=== PATIENT | female | born 1965 | race Hispanic/Latino ===

== ENCOUNTER 2017-03-03 17:55 | Emergency (ER) | payer MEDICARE, OTHER ==
[2017-03-03 17:56] VITALS: BMI 37.1
--- NOTE | 2017-03-03 18:21 | ED PDOC ---
Arrival/HPI - General Historian: Patient - History of Present Illness Time/Duration: Prior to Arrival Symptom Onset: Sudden Symptom Course: Unchanged Quality: Aching Context: Walking, Home <Maximus Carroll - Last Filed: 03/03/17 19:24> <MelchorChad bueno - Last Filed: 03/26/17 18:48> - General Time Seen by Provider: 03/03/17 17:58 - History of Present Illness Narrative History of Present Illness (Text): 03/03/17 18:17 This is a 51 yo female with hx anemia, anxiety, chronic low back and neck pain, presenting S/P fall. Pt suffered mechanical fall at home roughly 1 hr before evaluation. Pt was walking up stairs of banister at home when it collapsed and pt fell down onto ground on her right side. Pt is complaining of head and neck pain, along with 2 chipped teeth. She also reports B/L hip and arm pain and knee pain. She has black and blue jones on her right and left arms. PMH: Anemia, anxiety, chronic neck and back pain PSH: gastric bypass, neck surgery Allergies: NKDA FH: non contributory Home meds: ambien, xanax, oxycodone, percocet Social hx: current smoker, 1 ppd. no drinking. no drugs. Born in [place]. Lives at home with . 03/03/17 19:24 (Maximus Carroll) Past Medical History - Provider Review Nursing Documentation Reviewed: Yes - Travel History Have you recently traveled outside [place] w/in the past 3 mons?: No - Infectious Disease Hx of Infectious Diseases: None - Tetanus Immunization Tetanus Immunization: Unknown - Cardiac Hx Cardiac Disorders: No - Pulmonary Hx Asthma: Yes - Neurological Hx Neurological Disorder: No - HEENT Hx HEENT Disorder: No - Renal Hx Renal Disorder: No - Endocrine/Metabolic Hx Diabetes Mellitus Type 2: Yes - Hematological/Oncological Hx Blood Disorders: No - Integumentary Hx Dermatological Disorder: No - Musculoskeletal/Rheumatological Other/Comment: Carpel Tunnel - Gastrointestinal Hx Gastrointestinal Disorders: No - Genitourinary/Gynecological Hx Genitourinary Disorders: No - Psychiatric Hx Psychophysiologic Disorder: Yes Hx Anxiety: Yes Hx Bipolar Disorder: Yes Hx Depression: Yes Hx Substance Use: No - Surgical History Hx Section: Yes (X2) Hx Cholecystectomy: Yes Other/Comment: neck sx, 2 tummy tucks, brast implants, right carpal tunnel. - Anesthesia Hx Anesthesia: No Hx Anesthesia Reactions: No Hx Malignant Hyperthermia: No <Maximus Carroll - Last Filed: 03/03/17 19:24> Family/Social History - Physician Review Nursing Documentation Reviewed: Yes Family/Social History: No Known Family HX Smoking Status: Current Some Days Smoker Hx Alcohol Use: No Hx Substance Use: No Hx Substance Use Treatment: No <Maximus Carroll - Last Filed: 03/03/17 19:24> Allergies/Home Meds <Maximus Carroll - Last Filed: 03/03/17 19:24> <Chad Murguia - Last Filed: 03/26/17 18:48> Allergies/Adverse Reactions: Allergies No Known Allergies Allergy (Verified 01/15/14 11:23) Home Medications: Home Meds Medication Instructions Recorded Confirmed oxyCODONE/Acetaminophen [Percocet 1 tab PO Q6 PRN 03/03/17 03/03/17 5/325 mg Tab] Review of Systems - Review of Systems Constitutional: absent: Fevers, Night Sweats Eyes: absent: Vision Changes, Photophobia ENT: absent: Hearing Changes, Tinnitus Respiratory: absent: SOB, Cough Cardiovascular: absent: Chest Pain, Palpitations Gastrointestinal: absent: Abdominal Pain, Stool Changes Genitourinary Female: absent: Dysuria, Frequency Musculoskeletal: Back Pain, Neck Pain, Myalgias. absent: Arthralgias Skin: absent: Rash, Pruritis Neurological: Headache, Dizziness Endocrine: absent: Diaphoresis, Polyuria Hemo/Lymphatic: absent: Adenopathy, Easy Bleeding Psychiatric: absent: Anxiety, Depression <Maximus Carroll - Last Filed: 03/03/17 19:24> Physical Exam Vital Signs Reviewed: Yes Appearance: Positive for: Well-Appearing Mental Status: Positive for: Alert and Oriented X 3 - Systems Exam Head: Present: Normocephalic, Other (chipped front tooth) Pupils: Present: PERRL Extroacular Muscles: Present: EOMI Mouth: Present: Moist Mucous Membranes Neck: Present: MIDLINE TENDERNESS. No: Meningeal Signs, JVD Respiratory/Chest: No: Respiratory Distress, Accessory Muscle Use Cardiovascular: Present: Normal S1, S2 Abdomen: No: Tenderness, Distention, Peritoneal Signs Back: Present: Paraspinal Tenderness, Other (b/l hip tenderness) Upper Extremity: Present: Other (black and blue b/l arms). No: Normal Inspection, Cyanosis, Edema Lower Extremity: Present: Other (b/l knee tendernesss). No: Normal ROM Neurological: Present: CN II-XII Intact, Speech Normal Skin: Present: Warm, Dry Psychiatric: Present: Alert, Oriented x 3, Normal Insight, Normal Concentration <Maximus Carroll - Last Filed: 03/03/17 19:24> Vital Signs Temp Pulse Resp BP Pulse Ox 03/03/17 22:00 77 17 132/95 H 100 03/03/17 18:46 98.4 F 03/03/17 18:37 98 F 101 H 19 120/92 H 99 Medical Decision Making <Maximus Carroll - Last Filed: 03/03/17 19:24> <Chad Murguia - Last Filed: 03/26/17 18:48> ED Course and Treatment: pt was counselled regarding findings of non-specific sceloritic lesion of the mandible, thyroid lesions, pulmonary nodule, ovarian cyst, groin lymphanenopathy and to fu pmd/specialist to ensure no complications/cancer development. (Chad Murguia) - RAD Interpretation Radiology Orders: 03/03/17 18:41 KNEES BILATERAL [RAD] Stat SHOULDER LEFT [RAD] Stat SHOULDER RIGHT [RAD] Stat 03/03/17 18:42 PELVIS W/O PO OR IV CONTRAST [CT] Stat RIBS BILATERAL W/PA CHEST [RAD] Stat 03/03/17 18:43 CERVICAL SPINE W/O CONTRAST [CT] Stat HEAD W/O CONTRAST [CT] Stat MAXILLOFACIAL W/O CONTRAST [CT] Stat - Medication Orders Current Medication Orders: Discontinued Medications Ketorolac Tromethamine (Toradol) 30 mg IVP STAT STA Stop: 03/03/17 19:10 Last Admin: 03/03/17 19:35 Dose: 30 mg Comments: Administered via IM, left deltoid. Resident made aware and okayed. MAR Pain Assessment Document 03/03/17 19:35 RD (Rec: 03/03/17 20:13 RD [id number]) Pain Reassessment Is this a pain reassessment? No Sleep Is patient sleeping during reassessment? No Presence of Pain Presence of Pain Yes Description Pain Behavior Irritability IVP Administration Document 03/03/17 19:35 RD (Rec: 03/03/17 20:13 RD [id number]) Charges for Administration # of IVP Administrations 1 Disposition/Present on Arrival - Present on Arrival History of DVT/PE: No History of Uncontrolled Diabetes: No Urinary Catheter: No History Surgical Site Infection Following: None <Maximus Carroll - Last Filed: 03/03/17 19:24> - Present on Arrival Any Indicators Present on Arrival: No - Disposition Have Diagnosis and Disposition been Completed?: Yes Disposition Time: 22:30 <Chad Murguia - Last Filed: 03/26/17 18:48> - Disposition Diagnosis: Fall, Rib fracture Disposition: HOME/ ROUTINE Condition: STABLE Discharge Instructions (ExitCare): Ovarian Cyst (ED), Nasal Fracture (ED), Rib Fracture (ED), Lymphadenopathy (ED), Pulmonary Nodules (ED) Additional Instructions: Please return if condition worsens. Please follow up with PMD Please follow up with pain management for further pain control. Please use incentive spirometer Referrals: Pamela Le MD [Primary Care Provider] - Follow up with primary Forms: [employer] ([place])
[2017-03-03 18:49] VITALS: TEMP 98.4
--- NOTE | 2017-03-03 20:46 | CT ---
EXAM: CT Head Without Intravenous Contrast EXAM DATE/TIME: 03/03/2017 6:43 PM CLINICAL HISTORY: The patient age is 51 years old and is female; Injury or trauma; Fall; Initial encounter; Abrasion; Head, generalized Facility exam id and description: Ct heads head w/o contrast TECHNIQUE: Axial computed tomography images of the head/brain without intravenous contrast. All CT scans at this facility use one or more dose reduction techniques, viz.: automated exposure control; ma/kV adjustment per patient size (including targeted exams where dose is matched to indication; i.e. head); or iterative reconstruction technique. COMPARISON: No relevant prior studies available. FINDINGS: Brain: There is minimal to mild sulcal atrophy. The white-lei differentiation is preserved demonstrating no acute territorial type infarct. No acute intracranial hemorrhage is seen. Midline shift: There is no midline shift. Ventricles: No ventriculomegaly. Bones/joints: The calvarium demonstrates no evidence for a depressed fracture. Refer to the facial CT for description of findings involving the paranasal sinuses and facial bones. Soft tissues: No acute abnormality. Vasculature: There is mild atherosclerotic calcification of the cavernous internal carotid arteries. Sinuses: See above. Mastoid air cells: No mastoid effusion. IMPRESSION: 1. No acute intracranial abnormality. 2. There is minimal to mild sulcal atrophy.
--- NOTE | 2017-03-03 20:53 | CT ---
EXAM: CT Maxillofacial Without Intravenous Contrast EXAM DATE/TIME: 03/03/2017 6:43 PM CLINICAL HISTORY: The patient age is 51 years old and is female; Injury or trauma; Fall; Initial encounter; Abrasion; Forehead Facility exam id and description: Ct faces maxillofacial w/o contrast TECHNIQUE: Axial computed tomography images of the face without intravenous contrast. All CT scans at this facility use one or more dose reduction techniques, viz.: automated exposure control; ma/kV adjustment per patient size (including targeted exams where dose is matched to indication; i.e. head); or iterative reconstruction technique. Coronal and sagittal reformatted images were created and reviewed. COMPARISON: No relevant prior studies available. FINDINGS: Bones/joints: There is a fracture of the nasal bridge anteriorly, indeterminate in acuity. Nonspecific sclerotic changes identified involving the mandible anteriorly. The remaining facial bones are intact, without acute fracture. Refer to the cervical spine CT for discussion of findings involving the cervical spine. Soft tissues: No acute facial soft tissue swelling. Orbits: No acute abnormality. Sinuses: There is a small mucous retention cyst or polyp within the right maxillary sinus. Dental: There are areas of hypodensity surrounding the roots of multiple teeth, consistent with periodontal disease. Nasopharynx: There is a large defect within the nasal septum anteriorly, which is likely developmental, postoperative, or erosive. IMPRESSION: 1. There is a fracture of the nasal bridge anteriorly, indeterminate in acuity. Clinical correlation is recommended. 2. There is a large defect within the nasal septum anteriorly, which is likely developmental, postoperative, or erosive. 3. Nonspecific sclerotic changes identified involving the mandible anteriorly. 4. Additional CT findings described above.
--- NOTE | 2017-03-03 21:03 | CT ---
EXAM: CT Pelvis Without Intravenous Contrast EXAM DATE/TIME: 03/03/2017 6:42 PM CLINICAL HISTORY: The patient age is 51 years old and is female; Injury or trauma; Fall; Initial encounter; Abrasion; Bilateral; Pelvic region Facility exam id and description: Ct pelvs pelvis w/o po or iv contrast TECHNIQUE: Axial computed tomography images of the pelvis without intravenous contrast. All CT scans at this facility use one or more dose reduction techniques, viz.: automated exposure control; ma/kV adjustment per patient size (including targeted exams where dose is matched to indication; i.e. head); or iterative reconstruction technique. Coronal and sagittal reformatted images were created and reviewed. COMPARISON: CT - ABD PELVIS IV CONTRAST ONLY 2016-03-01 18:02 FINDINGS: Bones/joints: There is no acute fracture of the pelvis or hips. There is no dislocation of the hips. There is stable right L5 spondylolysis. Nonspecific sclerotic lesions are identified within the anterior inferior iliac spine. This is stable. There is stable abnormal morphology of the posterior elements at the L5 vertebral level. Soft tissues: There is minimal herniation of fat into the umbilicus. There stable stranding or postoperative changes involving the ventral abdominal subcutaneous tissues. Lymph nodes: There is an enlarged right inguinal lymph node measuring 2.2 cm in length, nonspecific as to etiology. This has increased in size. Stomach and bowel: Moderate fecal material is identified within the colon. No visualized obstruction. Bladder: No stones. Reproductive: There is a hypodense follicle or small cyst within the left ovary measures 1.5 x 1.2 cm. A small cystic collection of fluid is visualized within the right adnexa. IMPRESSION: 1. There is no acute fracture of the pelvis or hips. There is no dislocation of the hips. 2. There is stable right L5 spondylolysis. 3. Nonspecific sclerotic lesions are identified within the anterior inferior iliac spine. This is stable. 4. There is an enlarged right inguinal lymph node measuring 2.2 cm in length, nonspecific as to etiology. This has increased in size. 5. There is a hypodense follicle or small cyst within the left ovary measures 1.5 x 1.2 cm. A small cystic collection of fluid is visualized within the right adnexa. These findings can be further evaluated with ultrasound.
--- NOTE | 2017-03-03 21:12 | CT ---
EXAM: CT Cervical Spine Without Intravenous Contrast EXAM DATE/TIME: 03/03/2017 6:43 PM CLINICAL HISTORY: The patient age is 51 years old and is female; Injury or trauma; Fall; Initial encounter; Abrasion; Prior surgery; Surgery date: 6+ months Facility exam id and description: Ct csps cervical spine w/o contrast TECHNIQUE: Axial computed tomography images of the cervical spine without intravenous contrast. All CT scans at this facility use one or more dose reduction techniques, viz.: automated exposure control; ma/kV adjustment per patient size (including targeted exams where dose is matched to indication; i.e. head); or iterative reconstruction technique. Coronal and sagittal reformatted images were created and reviewed. COMPARISON: No relevant prior studies available. FINDINGS: Vertebrae: No acute cervical spine fracture or subluxation. There is postoperative fusion of the C4-C6 vertebral bodies. The cervical lordosis is preserved. The facet alignment is preserved bilaterally. The occipital condyles and C1-C2 articulations appear intact. Discs/spinal canal/neural foramina: Spondylosis is visualized at multiple cervical and upper thoracic levels. There is mild narrowing of the thecal sac at C3-4 with a central protrusion. Mild narrowing of the thecal sac is also identified at C6-7. Soft tissues: The prevertebral soft tissues appear within normal limits. Thyroid: There is asymmetric enlargement of the right thyroid lobe with nodules. The largest nodule measures 1.0 x 0.8 cm. A small calcification is also visualized within the right thyroid gland. Lung apices: Within the right upper lobe of the lung posteriorly, there is a 6 mm nodule. No pneumothorax. Nonspecific groundglass density and atelectatic changes are seen within the lungs. IMPRESSION: 1. No acute cervical spine fracture or subluxation. 2. Spondylosis is visualized at multiple cervical and upper thoracic levels. 3. There is mild narrowing of the thecal sac at C3-4 with a central protrusion. Mild narrowing of the thecal sac is also identified at C6-7. 4. There is postoperative fusion of the C4-C6 vertebral bodies. 5. Within the right upper lobe of the lung posteriorly, there is a 6 mm nodule. A nonemergent chest CT is recommended. 6. There is asymmetric enlargement of the right thyroid lobe with nodules. The largest nodule measures 1.0 x 0.8 cm.
--- NOTE | 2017-03-03 21:32 | RAD ---
EXAM: XR Bilateral Ribs and AP Chest, 4 or More Views EXAM DATE/TIME: 03/03/2017 6:42 PM CLINICAL HISTORY: The patient age is 51 years old and is female; Injury or trauma; Fall; Initial encounter; Rib area, bilateral; Blunt trauma Facility exam id and description: Rad ribs 2pa ribs bilateral w/pa chest TECHNIQUE: Frontal and oblique views of the bilateral ribs and frontal view of the chest. COMPARISON: CR - ELBOW LEFT 3 VIEWS ROUTINE 2016-05-14 19:18 FINDINGS: Lungs: There are low lung volumes bilaterally. No confluent infiltrate is identified. There is mild prominence of the pulmonary vascular markings. Pleural space: No pleural effusions. No pneumothorax. Heart: No cardiomegaly. Mediastinum: Unremarkable. Bones/joints: There is a fracture of the left seventh rib, indeterminate in acuity. There is no acute fracture the remaining left ribs. There is mild angulation of the right seventh and eighth ribs, without a well-defined acute fracture. There is no definite acute fracture of the remaining right ribs. Fusion hardware is identified within the cervical spine. IMPRESSION: 1. There is a fracture of the left seventh rib, indeterminate in acuity. Clinical correlation is recommended. 2. There is mild angulation of the right seventh and eighth ribs, without a well-defined acute fracture. 3. There are low lung volumes bilaterally. No confluent infiltrate is identified. 4. There is mild prominence of the pulmonary vascular markings.
[2017-03-03 22:13] VITALS: BP 132/95; PULSE 77; RESP 17; O2SAT 100
--- NOTE | 2017-03-04 08:05 | RAD ---
PROCEDURE: Radiographs of the Right Shoulder HISTORY: fall COMPARISON: Bold FINDINGS: BONES: Normal. No fracture. JOINTS: Normal. Glenohumeral and acromioclavicular joints preserved. No osteoarthritis. SOFT TISSUES: Normal. OTHER FINDINGS: Incompletely visualize findings related to ACDF. IMPRESSION: No significant or acute findings to account for/ related to the clinical presentation.
--- NOTE | 2017-03-04 08:06 | RAD ---
PROCEDURE: Radiographs of the Left Shoulder HISTORY: fall COMPARISON: March 03, 2017. Right shoulder FINDINGS: BONES: Normal. No fracture. JOINTS: Normal. Glenohumeral and acromioclavicular joints preserved. No osteoarthritis. SOFT TISSUES: Normal. OTHER FINDINGS: None. IMPRESSION: No significant or acute findings to account for/ related to the clinical presentation.
--- NOTE | 2017-03-04 08:07 | RAD ---
PROCEDURE: Bilateral Knee Radiographs. HISTORY: fall COMPARISON: None. FINDINGS: BONES: Right Knee: Normal. No fracture. Left Knee: Normal. No fracture. JOINTS: Right Knee: No appreciable degenerative change. Left knee: No appreciable degenerative change. SOFT TISSUES: Right Knee: Normal. Left Knee: Normal. JOINT EFFUSION: Right Knee: None. Left Knee: None. OTHER FINDINGS: None. IMPRESSION: No acute findings related to/accounting for the clinical presentation.
== END 2017-03-03 22:13 | disposition home or self-care (01) ==
LOC: ED 17:55
DX: S22.32XA Fracture of one rib, left side, initial encounter for closed fracture (principal); W19.XXXA Unspecified fall, initial encounter; Y93.01 Activity, walking, marching and hiking; Y92.009 Unspecified place in unspecified non-institutional (private) residence as the place of occurrence of the external cause
CPT/HCPCS: 70450; 70486; 71111; 72125; 72192; 73030; 73560; 96374; 99285; J1885

== ENCOUNTER 2017-05-17 20:08 | Emergency (ER) | payer OTHER ==
[2017-05-17 20:09] VITALS: BMI 37.1
--- NOTE | 2017-05-17 20:38 | ED PDOC ---
Arrival/HPI <Brooks Huizar - Last Filed: 05/17/17 22:17> - General Historian: Patient <Saman Fischer - Last Filed: 05/17/17 23:22> - General Chief Complaint: Abdominal Pain - History of Present Illness Narrative History of Present Illness (Text): 05/17/17 20:35 Pt is a 51 yo F with PMH of asthma, anemia, anxiety, chronic low back and neck pain presents to Emergency department with 5 day history of RUQ pain that radiates to her right flank. Pt states that onset was insidious. Pt states that pain is positional and describes pain as a 10/10. Pt states that she is SOB due to pain. Pain does not worsen with eating. Pt states that past surgical history includes gastric bypass, neck surgery, and 2 c-sections. Pt denies CP, n/v/d, constipation, dysuria, hematuria, fever, chills, or dizziness. (Saman Fischer) Past Medical History - Provider Review Nursing Documentation Reviewed: Yes - Infectious Disease Hx of Infectious Diseases: None - Tetanus Immunization Tetanus Immunization: Unknown - Cardiac Hx Cardiac Disorders: No - Pulmonary Hx Asthma: Yes - Neurological Hx Neurological Disorder: No - HEENT Hx HEENT Disorder: No - Renal Hx Renal Disorder: No - Endocrine/Metabolic Hx Diabetes Mellitus Type 2: No - Hematological/Oncological Hx Blood Disorders: No - Integumentary Hx Dermatological Disorder: No - Musculoskeletal/Rheumatological Other/Comment: Carpel Tunnel - Gastrointestinal Hx Gastrointestinal Disorders: No - Genitourinary/Gynecological Hx Genitourinary Disorders: No - Psychiatric Hx Psychophysiologic Disorder: Yes Hx Anxiety: Yes Hx Bipolar Disorder: Yes Hx Depression: Yes Hx Substance Use: No - Surgical History Hx Section: Yes (X2) Hx Cholecystectomy: Yes Other/Comment: neck sx, 2 tummy tucks, brast implants, right carpal tunnel. - Anesthesia Hx Anesthesia: No Hx Anesthesia Reactions: No Hx Malignant Hyperthermia: No <Saman Fischer - Last Filed: 05/17/17 23:22> Family/Social History - Physician Review Nursing Documentation Reviewed: Yes Family/Social History: No Known Family HX Smoking Status: Current Some Days Smoker Hx Alcohol Use: No Hx Substance Use: No Hx Substance Use Treatment: No <Saman Fischer - Last Filed: 05/17/17 23:22> Allergies/Home Meds <Brooks Huizar - Last Filed: 05/17/17 22:17> <Saman Fischer - Last Filed: 05/17/17 23:22> Allergies/Adverse Reactions: Allergies No Known Allergies Allergy (Verified 01/15/14 11:23) Home Medications: Home Meds Medication Instructions Recorded Confirmed oxyCODONE/Acetaminophen [Percocet 1 tab PO Q6 PRN 03/03/17 05/17/17 5/325 mg Tab] Review of Systems - Review of Systems Constitutional: Normal Eyes: Normal ENT: Normal Respiratory: SOB Cardiovascular: Normal Gastrointestinal: Abdominal Pain (RUQ radiates to right flank) Genitourinary Female: Normal Musculoskeletal: Normal Skin: Normal Neurological: Normal Endocrine: Normal Hemo/Lymphatic: Normal Psychiatric: Normal <Saman Fischer - Last Filed: 05/17/17 23:22> Physical Exam Vital Signs Reviewed: Yes Temperature: Afebrile Blood Pressure: Normal Pulse: Tachycardic Respiratory Rate: Normal Appearance: Positive for: Well-Appearing Pain Distress: Moderate Mental Status: Positive for: Alert and Oriented X 3 - Systems Exam Head: Present: Atraumatic, Normocephalic Extroacular Muscles: Present: EOMI Mouth: Present: Moist Mucous Membranes Neck: Present: Normal Range of Motion. No: Paraspinal Tenderness Respiratory/Chest: Present: Clear to Auscultation. No: Accessory Muscle Use, Wheezes, Rales, Other Cardiovascular: Present: Normal S1, S2, Tachycardic. No: Murmurs, Rub, Muffled Abdomen: No: Tenderness, Distention, Peritoneal Signs, Rebound, Guarding Back: Present: CVA Tenderness (right) Upper Extremity: Present: Normal Inspection Lower Extremity: Present: Normal Inspection Neurological: Present: GCS=15 Skin: Present: Warm, Dry Psychiatric: Present: Alert, Oriented x 3 <Saman Fischer - Last Filed: 05/17/17 23:22> Vital Signs Temp Pulse Resp BP Pulse Ox 05/17/17 20:14 98.8 F 103 H 16 105/74 100 Medical Decision Making - Lab Interpretations I have reviewed the lab results: Yes - RAD Interpretation Viticulture Teacher: Radiologist - EKG Interpretation Interpreted by ED Physician: Yes Type: 12 lead EKG <Brooks Huizar - Last Filed: 05/17/17 22:17> <Saman Fischer - Last Filed: 05/17/17 23:22> ED Course and Treatment: Impression: Pt seen and evaluated with medical records manager. Pt, whose past medical history includes gastric bypass, asthma, anemia, anxiety, chronic lower back pain and neck pain, presented for RUQ pain radiating to right flank. Aware and agree with HPI, clinical findings, plan, and management. Plan: -- US Gallbladder/Common Bile Duct -- EKG -- Labs, cardiac enzymes -- Urinalysis, urine cultures -- Toradol -- Reassess and disposition (Brooks Huizar) 05/17/17 20:49 Assessment: 51 yo M with PMH of asthma presents to ED with RUQ that radiates to right flank. Plan: - Labs - Cardiac Iso - EKG - RUQ US - UA 05/17/17 21:21 EKG showed NSR, rate 82. 05/17/17 22:10 Gallbladder/CBD US IMPRESSION: Liver prominent in size with evidence of increased echogenicity, likely on the basis of fatty infiltration. Cholelithiasis without sonographic findings to suggest acute cholecystitis. Nonobstructing right intrarenal calculus. Pancreas not visualized. Correlate clinically. Followup as warranted. UA showed positive nitrates, moderate leukocyte esterase, many bacteria, many epithelial cells. 05/17/17 23:14 On reassessment, patient sitting comfortably in chair watching videos on phone. Apon questioning patient states that pain is still present and morphine helped somewhat. Pain still present on palpation. Abdominal/Pelvis CT without contrast IMPRESSION: Minimal right pleural effusion. Atelectasis/scarring at the lung bases. Pleural based irregularity/nodularity may be related to atelectasis. Punctate nodule in the right lower lobe. Evidence of gastric bypass surgery. Large hiatal hernia with evidence of thickening of the gastroesophageal wall. Gas-distended bowel at site of surgical sutures in the left upper quadrant. Retained fecal material in the colon. Limited evaluation of bowel without contrast. Cholelithiasis. Enlarged left adrenal gland. Evidence of underlying nodules. Dominant 2.5 cm nodule. This may represent an adenoma but cannot be confirmed on this study. Atrophic right kidney. Small nonobstructing right intrarenal calcification, appears cortical. Left kidney demonstrates underlying hypoattenuating lesion measuring approximately a 1.2 cm , likely represents a cyst, incompletely characterized on the current study. Anterior wedging of T11 and T12. Please note evaluation for underlying visceral lesions/abnormalities limited without intravenous contrast. Discussed results with patient. Advised outpatient follow up with her PMD. Explained to patient that pain is likely musculoskeletal in origin, which could cause her shortness in breath due to close proximity to diaphragm. Offered Rx for Ultram for her pain, however patient rejected offer as she said that she already has percocet at home. Patient will be given Rx for Keflex for UTI. Impression: Musculoskeletal pain, UTI (Saman Fischer) - Lab Interpretations Lab Results: 05/17/17 20:45 05/17/17 20:45 Lab Results 05/17/17 21:22: Urine Color Yellow, Urine Appearance Sl cloudy, Urine pH 6.0, Ur Specific Adel >= 1.030, Urine Protein Trace H, Urine Glucose (UA) Negative , Urine Ketones Trace H, Urine Blood Trace-intact H, Urine Nitrate Positive H, Urine Bilirubin Negative, Urine Urobilinogen 0.2, Ur Leukocyte Esterase Moderate H, Urine RBC 2 - 5, Urine WBC 10 - 15, Ur Epithelial Cells Many, Urine Bacteria Many 05/17/17 20:45: Lipase 35 05/17/17 20:45: Sodium 141, Potassium 3.9, Chloride 106, Carbon Dioxide 25, Anion Gap 14, BUN 19, Creatinine 0.7, Est GFR ( Amer) > 60, Est GFR (Non- Af Amer) > 60, Random Glucose 93, Calcium 9.5, Total Bilirubin 0.2, AST 29, ALT 25, Alkaline Phosphatase 90, Lactate Dehydrogenase 312 L, Total Creatine Kinase 22 L, Troponin I < 0.01, Total Protein 7.2, Albumin 3.7, Globulin 3.5, Albumin/ Globulin Ratio 1.0 L 05/17/17 20:45: WBC 10.1, RBC 4.74, Hgb 9.3 L, Hct 31.4 L, MCV 66.2 L, MCH 19.6 L, MCHC 29.6 L, RDW 21.4 H, Plt Count 460 H, MPV 8.8, Gran % 51.7, Lymph % (Auto ) 39.7 H, Garrett % (Auto) 5.7, Eos % (Auto) 2.6, Baso % (Auto) 0.3, Gran # 5.24, Lymph # (Auto) 4.0 H, Garrett # (Auto) 0.6, Eos # (Auto) 0.3, Baso # (Auto) 0.03 - RAD Interpretation Radiology Orders: 05/17/17 20:40 GALLBLADDER & COMMON DUCT [US] Stat 05/17/17 22:19 ABDOMEN & PELVIS [ABD & PELVIS W/O PO OR IV CONT] [CT] Stat - Medication Orders Current Medication Orders: Discontinued Medications Ketorolac Tromethamine (Toradol) 30 mg IVP STAT STA Stop: 05/17/17 21:29 Last Admin: 05/17/17 21:37 Dose: 30 mg MAR Pain Assessment Document 05/17/17 21:37 SS (Rec: 05/17/17 21:37 SS [id number]) Pain Reassessment Is this a pain reassessment? Yes Presence of Pain Presence of Pain Yes Location Left, Right or Bilateral Right Upper or Lower Upper Pain Location Body Site Abdomen Description Description Constant Intensity of Pain at present 7 IVP Administration Document 05/17/17 21:37 SS (Rec: 05/17/17 21:37 SS [id number]) Charges for Administration # of IVP Administrations 1 Morphine Sulfate (Morphine) 2 mg IVP STAT STA Stop: 05/17/17 22:23 Last Admin: 05/17/17 22:32 Dose: 2 mg MAR Pain Assessment Document 05/17/17 22:32 SS (Rec: 05/17/17 22:32 SS [id number]) Pain Reassessment Is this a pain reassessment? Yes Presence of Pain Presence of Pain Yes Pain Scale Used Pain Scale Used Numeric Location Left, Right or Bilateral Right Upper or Lower Upper Pain Location Body Site Abdomen Description Description Constant Intensity of Pain at present 9 Pain Behavior Moaning Guarding Irritability Rubbing Site Restlessness IVP Administration Document 05/17/17 22:32 SS (Rec: 05/17/17 22:32 SS [id number]) Charges for Administration # of IVP Administrations 1 Ondansetron HCl (Zofran Inj) 4 mg IVP STAT STA Stop: 05/17/17 22:23 Last Admin: 05/17/17 22:32 Dose: 4 mg IVP Administration Document 05/17/17 22:32 SS (Rec: 05/17/17 22:32 SS [id number]) Charges for Administration # of IVP Administrations 1 Disposition/Present on Arrival <Brooks Huizar - Last Filed: 05/17/17 22:17> - Present on Arrival Any Indicators Present on Arrival: No History of DVT/PE: No History of Uncontrolled Diabetes: No Urinary Catheter: No History of Decub. Ulcer: No History Surgical Site Infection Following: None - Disposition Have Diagnosis and Disposition been Completed?: Yes Disposition Time: :18 Patient Plan: Discharge <AaliyahSaman - Last Filed: 05/17/17 23:22> - Disposition Diagnosis: Musculoskeletal pain, UTI (urinary tract infection) Diagnosis: (Ruled Out): Abdominal pain Disposition: HOME/ ROUTINE Patient Problems: Current Active Problems Problem Status Onset Musculoskeletal pain Acute UTI (urinary tract infection) Acute Condition: FAIR Discharge Instructions (ExitCare): Muscle and Bone Pain (DC), Urinary Tract Infections in Adults Additional Instructions: 1. Complete course of antibiotics for UTI 2. Use pain medication as needed, do not operate heavy machinery if using 3. Avoid alcohol, smoking, and drug use 4. Follow up with PMD 5. Return to ED if symptoms worsen Prescriptions: Cephalexin [Keflex] 500 mg PO BID #14 capsule Referrals: Pamela Le MD [Primary Care Provider] - Follow up with primary Forms: [employer] (Brazilian)
[2017-05-17 20:40] VITALS: TEMP 98.8
[2017-05-17 21:10] LABS: BASO # 0.03 K/mm3 (0.0-2.0); BASO % 0.3 % (0.0-3.0); EOS # 0.3 (0.0-0.7); EOS % 2.6 % (1.5-5.0); GRAN # 5.24 (1.4-6.5); GRAN % 51.7 % (50.0-68.0); HEMOGLOBIN 9.3 g/dL (12.0-16.0); LYMPH % 39.7 % (22.0-35.0); MEAN CELL VOLUME 66.2 fl (80.0-105.0); MEAN CORPUSCULAR HEMOGLOBIN 19.6 pg (25.0-35.0); MEAN CORPUSCULAR HGB CONC 29.6 g/dl (31.0-37.0); MEAN PLATELET VOLUME 8.8 fl (7.0-11.0); MONO # 0.6 (0.1-0.6); MONO % 5.7 % (1.0-6.0); RBC 4.74 10^6/uL (3.5-6.1); RED CELL DISTRIBUTION WIDTH 21.4 % (11.5-14.5); WHITE BLOOD COUNT 10.1 10^3/ul (4.5-11.0)
[2017-05-17 21:18] LABS: ALBUMIN 3.7 g/dL (3.0-4.8); ALT/SGPT 25 U/L (7-56); AST/SGOT 29 U/L (14-36); BLOOD UREA NITROGEN 19 mg/dL (7-21); CALCIUM 9.5 mg/dL (8.4-10.5); GFR AFRICAN-AMERICAN > 60; GFR NON-AFRICAN AMERICAN > 60
[2017-05-17 21:33] LABS: URINE BILIRUBIN NEGATIVE (NEGATIVE); URINE BLOOD TRACE-INTACT (NEGATIVE); URINE GLUCOSE (UA) NEGATIVE (NEGATIVE); URINE LEUKOCYTE ESTERASE MODERATE Leu/uL (NEGATIVE); URINE NITRATE POSITIVE (NEGATIVE); URINE PROTEIN TRACE mg/dL (<30 mg/dL); URINE UROBILINOGEN 0.2 E.U./dL (<1 E.U./dL)
[2017-05-17 21:35] LABS: TROPONIN I < 0.01 ng/mL
[2017-05-17 21:43] LABS: URINE APPEARANCE SL CLOUDY (CLEAR); URINE COLOR YELLOW (YELLOW)
[2017-05-17 21:44] LABS: URINE BACTERIA MANY (NEG); URINE EPITHELIAL CELLS MANY /hpf (0-5)
--- NOTE | 2017-05-17 22:08 | US ---
EXAM: US Abdomen Limited, Right Upper Quadrant CLINICAL HISTORY: 51 years old, female; Pain; Abdominal pain; Flank; Right upper quadrant (ruq); Additional info: Ruq pain TECHNIQUE: Real-time ultrasound of the right upper quadrant with image documentation. COMPARISON: CT - ABD PELVIS IV CONTRAST ONLY 2016-03-01 18:02 FINDINGS: Liver: Liver measured at approximately 18 cm. Increased echogenicity. Gallbladder: Cholelithiasis. No gallbladder wall thickening or edema. Common bile duct: Not dilated. Pancreas: Not visualized. Right kidney: Measured at approximately 9 x 5 x 6 cm. Approximately 1 cm stone visualized. No hydronephrosis. IMPRESSION: Liver prominent in size with evidence of increased echogenicity, likely on the basis of fatty infiltration. Cholelithiasis without sonographic findings to suggest acute cholecystitis. Nonobstructing right intrarenal calculus. Pancreas not visualized. Correlate clinically. Followup as warranted.
[2017-05-17] MEDS ORDERED: Morphine 2 mg/ml ISec IVP STA (22:22)
[2017-05-17] MEDS ORDERED: Morphine 2 mg/ml ISec ONE (22:24)
--- NOTE | 2017-05-17 23:04 | CT ---
EXAM: CT Abdomen and Pelvis Without Intravenous Contrast CLINICAL HISTORY: 51 years old, female; Pain; Abdominal pain; Localized; Upper TECHNIQUE: Axial computed tomography images of the abdomen and pelvis without intravenous contrast. All CT scans at this facility use one or more dose reduction techniques, viz.: automated exposure control; ma/kV adjustment per patient size (including targeted exams where dose is matched to indication; i.e. head); or iterative reconstruction technique. Coronal and sagittal reformatted images were created and reviewed. COMPARISON: CT - PELVIS W/O CONTRAST 2017-03-03 19:51 FINDINGS: Lower thorax: Atelectasis/scarring at the lung bases. Pleural based irregularity/nodularity may be related to atelectasis. Punctate nodule in the right lower lobe. Minimal right pleural effusion. ABDOMEN: Liver: No acute abnormality as visualized. Gallbladder and bile ducts: Cholelithiasis. Pancreas: No acute abnormality as visualized. Spleen: No splenomegaly. Adrenals: Enlarged left adrenal gland. Evidence of underlying nodules. Dominant 2.5 cm nodule. This may represent an adenoma but cannot be confirmed on this study. Kidneys and ureters: Atrophic right kidney. Small nonobstructing right intrarenal calcification, appears cortical. No hydronephrosis. Left kidney demonstrates underlying hypoattenuating lesion measuring approximately a 1.2 cm, likely represents a cyst, incompletely characterized on the current study. Stomach and bowel: Limited evaluation without contrast. Evidence of gastric bypass surgery. Large hiatal hernia with evidence of thickening of the gastroesophageal wall. Gas-distended bowel at site of surgical sutures in the left upper quadrant. Retained fecal material in the colon. PELVIS: Bladder: Relatively collapsed, incompletely evaluated Reproductive: No acute abnormality as visualized. ABDOMEN and PELVIS: Intraperitoneal space: No free air. No significant fluid collection. Bones/joints: Degenerative changes. Anterior wedging of T11 and T12. Soft tissues: No acute abnormality as visualized. Vasculature: No abdominal aortic aneurysm. Lymph nodes: No acute abnormality as visualized. IMPRESSION: Minimal right pleural effusion. Atelectasis/scarring at the lung bases. Pleural based irregularity/nodularity may be related to atelectasis. Punctate nodule in the right lower lobe. Evidence of gastric bypass surgery. Large hiatal hernia with evidence of thickening of the gastroesophageal wall. Gas-distended bowel at site of surgical sutures in the left upper quadrant. Retained fecal material in the colon. Limited evaluation of bowel without contrast. Cholelithiasis. Enlarged left adrenal gland. Evidence of underlying nodules. Dominant 2.5 cm nodule. This may represent an adenoma but cannot be confirmed on this study. Atrophic right kidney. Small nonobstructing right intrarenal calcification, appears cortical. Left kidney demonstrates underlying hypoattenuating lesion measuring approximately a 1.2 cm, likely represents a cyst, incompletely characterized on the current study. Anterior wedging of T11 and T12. Please note evaluation for underlying visceral lesions/abnormalities limited without intravenous contrast.
[2017-05-17 23:36] VITALS: BP 122/81; PULSE 75; RESP 18; O2SAT 97
--- NOTE | 2017-05-18 19:11 | CARD ---
APPROVED REPORT EKG Measurement Heart [id number] DC [id number] <Conclusion> Normal sinus rhythm Normal ECG
== END 2017-05-17 23:26 | disposition home or self-care (01) ==
LOC: ED 20:08
DX: N39.0 Urinary tract infection, site not specified (principal); M79.1 Myalgia; D64.9 Anemia, unspecified; E11.9 Type 2 diabetes mellitus without complications; Z90.49 Acquired absence of other specified parts of digestive tract
CPT/HCPCS: 74176; 76705; 80053; 81001; 82550; 83615; 83690; 84484; 85025; 87086; 93005; 96374; 96375; 99283; J1885; J2270; J2405